=== PATIENT | male | born 1955 | race African-American/Black ===

== ENCOUNTER 2017-07-19 11:50 | Emergency (ER) | payer MEDICAID, OTHER ==
[~2017-07-19] VITALS: Ht 172.7 cm; Wt 81.6 kg
[2017-07-19] MEDS ORDERED: Indomethacin 75 MG CAPSULE.ER ORAL SCH (12:15)
--- NOTE | 2017-07-19 12:24 | Emergency Room Report ---
History of Present Illness General Chief Complaint: Lower Extremity Injury Source: Patient, EMS Present Illness HPI 62-year-old male patient presents to ED complaining of right foot pain x1 day. Patient reports pain began last night and has been increasing in intensity since that time. Patient states it is a burning pain. Patient states he has not taken any medications for relief of pain symptoms. Patient denies history of trauma or injury to foot. Patient reports he has difficulty walking secondary to pain. Patient reports a history of gout which is not being treated by medications at this time. Patient denies fever, rash, skin changes. Allergies: Coded Allergies: No Known Allergies (Unverified , 07/19/17) Patient History Past Medical History: see triage record Social History: Denies: smoking, alcohol use, drug use Immunizations: UTD Reviewed Nursing Documentation: PMH: Agreed, PSxH: Agreed Nursing Documentation-PMH Past Medical History: No Stated History Review of Systems All Other Systems: negative except mentioned in HPI Physical Exam Vital Signs Date Time Temp Pulse Resp B/P (MAP) Pulse Ox O2 Delivery O2 Flow Rate FiO2 07/19/17 11:38 98.4 94 16 154/88 99 Room Air Sp02 EP Interpretation: reviewed, normal General Appearance: no apparent distress, alert, GCS 15, non-toxic, mild distress Head: normocephalic, atraumatic Eyes: bilateral eye normal inspection, bilateral eye PERRL Respiratory: no respiratory distress, no accessory muscle use Musculoskeletal: normal inspection, digits/nails normal, no calf tenderness, decreased range of motion - Decreased ROM foot secondary to pain. , Kailee's Sign negative, other - No erythema, edema. NVI. No tophi. Neurologic: alert, oriented x3, responsive Psychiatric: mood/affect normal Skin: normal color, no rash, warm/dry, other - No swelling, heat, edema at first MTP of right foot. Medical Decision Making PA Attestation Dr. Lawler is my supervising Physician whom patient management has been discussed with. ER Course Pt. presents to the ED c/o right foot pain. Ddx considered but are not limited to gout, fracture, sprain, strain, contusion , cellulitis, DVT. Vital signs: are WNL, pt. 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 ORDERS: An X-ray of the right foot was ordered, results show no acute disease, per the official radiology report. ED INTERVENTIONS: -Colchicine -Indomethacin -Cane provided. DISCHARGE: -Rx provided for Ibuprofen for pain symptoms. -Rx provided for Colchicine. At this time pt. is stable for d/c to home. Will provide printed patient care instructions, and any necessary prescriptions. Patient instructed to follow with primary care provider in 3 - 5 days and to discuss further gout and foot pain treatment. Care plan and follow up instructions have been discussed with the patient prior to discharge. Take medications as directed. Patient questions asked and answered. ER precautions given, patient instructed to return to ER immediately for any new or worsening of symptoms. Other X-Ray Diagnostic Results Other X-Ray Diagnostic Results : X-Ray ordered: Right foot # of Views/Limited Vs Complete: 2 View Indication: Pain EP Interpretation: Yes PA Xray: Interpretation reviewed, by supervising MD, and agrees with findings. Interpretation: no dislocation, no soft tissue swelling, no fractures Impression: No acute disease JAKE Scribe Text Ankit Farris PA-C Last Vital Signs Date Time Temp Pulse Resp B/P (MAP) Pulse Ox O2 Delivery O2 Flow Rate FiO2 07/19/17 11:38 98.4 94 16 154/88 99 Room Air Disposition: HOME, SELF-CARE Condition: Stable Scripts Colchicine (COLCRYS) 0.6 Mg Tablet 0.6 MG PO DAILY, #1 TAB Prov: Ankit Farris 07/19/17 Ibuprofen* (MOTRIN*) 400 Mg Tablet 400 MG ORAL Q6H, #30 TAB 0 Refills Prov: Ankit Farris 07/19/17 Additional Instructions: Followup with primary care provider in 3 -5 days. Take medications as directed. Patient questions asked and answered. ER precautions given, patient instructed to return to ER immediately for any new or worsening of symptoms. Ankit Farris Jul 19, 2017 12:24
[2017-07-19] MEDS ORDERED: COLCRYS0.6 M1 PO (13:11)
[2017-07-19] MEDS ORDERED: IBUPROFEN400 MG ORAL (13:11)
[2017-07-19 13:12] VITALS: BP 142/79
--- NOTE | 2017-07-19 13:45 | Diagnostic Imaging Report ---
Indication: Pain Comparison: None Findings: 2 views of the right foot were obtained. No fracture seen. There is narrowing of the first MTP joint. There is a fixation plate in the lateral malleolus region. IMPRESSION: No acute injury identified
== END 2017-07-19 13:24 | disposition home or self-care (01) ==
LOC: EDBD 11:50 → EMR 12:22
DX: M79.671 Pain in right foot (principal)
CPT/HCPCS: 99283